=== PATIENT | female | born 1955 | race African-American/Black ===

== ENCOUNTER 2022-10-30 08:52 | Outpatient (CLI) | payer MEDICARE, SELFPAY | END 2022-10-30 08:53 | disposition home or self-care (01) | LOC: ANHAUDIO 08:53 | PROVIDERS: Visit Provider Otolaryngology | DX: H93.13 Tinnitus, bilateral (principal) | CPT/HCPCS: 92557; 92567 ==

== ENCOUNTER 2022-11-04 09:52 | Outpatient (CLI) | payer MEDICARE, SELFPAY ==
--- NOTE | ~2022-11-04 | MM_ITS ---
EXAMINATION: MM screening topher BI w rashmi HISTORY: Screening mammogram TECHNIQUE: Craniocaudal and mediolateral oblique 3-D tomosynthesis images were obtained and synthetic 2-D images were generated. CAD analysis was submitted and interpreted. COMPARISON: No prior mammogram is available for comparison at this institution. BREAST PARENCHYMAL COMPOSITION: There are scattered areas of fibroglandular density. FINDINGS: RIGHT BREAST: An asymmetry is present in the subareolar aspect of the breast. LEFT BREAST: There is focal asymmetry in the anterior third of the upper outer quadrant of the breast . IMPRESSION: 1. Bilateral breast findings as above which may represent the patient's baseline however no compariso n is currently available. 2. Comparison with prior mammograms is necessary. BI-RADS Category 0: Incomplete: Needs comparison with prior mammograms. Reviewed, dictated and finalized at location A. OPERATOR IMPRESSION: 1. Bilateral breast findings as above which may represent the patient's baselin e however no comparison is currently available. 2. Comparison with prior mammograms is necessary. BI-RADS Category 0: Incomplete: Needs comparison with prior mammograms.
== END 2022-11-04 09:53 | disposition home or self-care (01) ==
LOC: ANHIMG 09:58
DX: Z12.31 Encounter for screening mammogram for malignant neoplasm of breast (principal)
CPT/HCPCS: 77063; 77067

== ENCOUNTER 2023-12-29 12:09 | Emergency (ER) | payer MEDICARE, SELFPAY ==
[2023-12-29] VITALS (11 sets, daily range): BP systolic 64–124; BP diastolic 32–98; PULSE 59–87; RESP 17–20; TEMP 36.7; O2SAT 94–100
--- NOTE | ~2023-12-29 | CT_ITS ---
EXAMINATION: CT cervical spine wo con DATE: 12/29/2023 12:41 INDICATION: Head injury. TECHNIQUE: Computed tomography (CT) of the cervical spine was performed without intravenous contrast. Automated exposure control and iterative reconstruction technique were employed. The dose-length pro duct was 308.68 mGy-cm. COMPARISON: None FINDINGS: There is a 13 mm nodule in the thyroid, likely clinically significant. There is 6 degrees d extrocurvature of cervical spine. Vertebral body heights are normal. There is severely decreased disc height from C3-C4 through C5-C6 and moderately decreased disc height at C6-C7. The following disc le vels are specifically discussed: C2-C3: There is no uncovertebral joint osteoarthritis. There is mild bilateral facet joint osteoarthr itis. There is no neural foraminal stenosis. There is no central canal stenosis. C3-C4: There is severe bilateral uncovertebral joint osteoarthritis. There is mild right and moderate left facet joint osteoarthritis. There is mild bilateral neural foraminal stenosis. There is mild ce ntral canal stenosis. C4-C5: There is severe bilateral uncovertebral joint osteoarthritis. There is severe bilateral facet joint osteoarthritis. There is mild bilateral neural foraminal stenosis. There is mild central canal stenosis. C5-C6: There is severe bilateral uncovertebral joint osteoarthritis. There is mild right and moderate left facet joint osteoarthritis. There is mild right and moderate left neural foraminal stenosis. Th ere is mild central canal stenosis. C6-C7: There is mild right and severe left uncovertebral joint osteoarthritis. There is mild right an d severe left facet joint osteoarthritis. There is moderate left neural foraminal stenosis. There is mild central canal stenosis. C7-T1: There is no uncovertebral joint osteoarthritis. There is severe bilateral facet joint osteoart hritis. There is mild bilateral neural foraminal stenosis. There is no central canal stenosis. IMPRESSION: 1. No fracture. 2. Severe cervical spondylosis. Reviewed, dictated and finalized at location A.
--- NOTE | ~2023-12-29 | CT_ITS ---
EXAMINATION: CT brain wo con DATE: 12/29/2023 12:41 INDICATION: Head injury. Fall. TECHNIQUE: Computed tomography (CT) of the head was performed without intravenous contrast. The mA wa s adjusted according to patient size. Iterative reconstruction technique was employed. The dose-lengt h product was 681.00 mGy-cm. COMPARISON: None FINDINGS: There are scattered areas of low attenuation in the cerebral white matter, which is within normal limits for the patient's age. There is no intracranial hemorrhage, acute infarction, or abnorm al intracranial mass lesion. The ventricles are normal in size. There are likely changes of ocular le ns replacement surgeries. There is mild mucosal thickening sphenoid sinus. The mastoid air cells are normal. There is a right-sided scalp laceration. IMPRESSION: 1. Normal aging brain. Reviewed, dictated and finalized at location A. IMPRESSION: 1. Normal aging brain.
--- NOTE | 2023-12-29 12:28 | ED.HEATRA ---
HPI - Head Injury General Chief complaint: Head Injury Stated complaint: glf, lac Time Seen by Provider: 12/29/23 12:17 Source: patient and family (, daughter (via phone)) Mode of arrival: EMS Limitations: no limitations History of Present Illness HPI Narrative: Patient has a history of multiple sclerosis. Presents as a ground level fall after her leg gave out. No loss of consciousness. Denies any neck pain or back pain but sustained a large laceration to the left side of her scalp which has a large skin flap. Not on anticoagulation. 8 out of 10 pain. Tetanus up to date (last in 2019). Having pain at the site of the laceration. Related Data Home Medications Medication Instructions Recorded Confirmed carbamazepine 100 mg 100 mg PO Q12H 10/28/22 10/28/22 tablet,extended release,12 hr (Tegretol XR) ezetimibe 10 mg tablet (Zetia) 10 mg PO DAILY 10/28/22 10/28/22 fexofenadine 180 mg tablet 180 mg PO DAILY 10/28/22 10/28/22 (Thu Allergy) fingolimod 0.5 mg capsule (Gilenya) 0.5 mg PO DAILY 10/28/22 10/28/22 fluoxetine 40 mg capsule (Prozac) 40 mg PO DAILY 10/28/22 10/28/22 fluticasone propionate 50 1 spray intranasal DAILY 10/28/22 10/28/22 mcg/actuation nasal spray,suspension (Flonase Allergy Relief) gabapentin 600 mg tablet 600 mg PO TID 10/28/22 10/28/22 lisinopril 20 1 tablet PO BID 10/28/22 10/28/22 mg-hydrochlorothiazide 25 mg tablet modafinil 100 mg tablet (Provigil) 100 mg PO QAM 10/28/22 10/28/22 oxycodone-acetaminophen 5 mg-325 1 tablet PO Q6H PRN 10/28/22 10/28/22 mg tablet (Percocet) pantoprazole 40 mg tablet,delayed 40 mg PO QAM 10/28/22 10/28/22 release (Protonix) Allergies Allergy/AdvReac Type Severity Reaction Status Date / Time loratadine [From Claritin] Allergy Intermediate rash Verified 12/29/23 12:45 vicodin Allergy Severe Nausea and Uncoded 12/29/23 12:45 Vomiting PMFSH Past Medical History Medical History Multiple sclerosis Family History Family History (Updated 10/28/22 @ 11:44 by Maria Luz Pak CMA) Father Hypertension Mother Diabetes mellitus Hypertension Sibling Diabetes mellitus Other Hypertension Heart disease Social History Social History (Updated 12/30/23 @ 06:17 by Lyssa Rodriguez MD) Smoking status: Never smoker Alcohol intake: current Lack of Transportation: No Lack of Food: Never True Current Housing: I Have Housing Concerned About Future Housing: No Difficulty Paying Gas/Electric Bills: No Difficulty Paying for Meds: No Currently Unemployed: No Education: Associate Degree Difficulty w/ Childcare or Family Care: No Living arrangements: with family Additional living arrangements comments: . Has a daughter who works in an otolaryngology clinic Occupation/Education: retired Additional occupation/education comments: former nurse Exam Narrative: GENERAL: Well-appearing, well-nourished, and in no acute distress. Exceedingly pleasant HEAD: No palpable skull defect. Large laceration with skin flap along right side of head, inverted V shape. Short edge 4cm, long edge 12cm. Oozing blood occasionally but generally well controlled with pressure dressing applied. EYES: Non injected, non icteric ENT: Nares clear, no rhinorrhea or epistaxis. NECK: Supple. CHEST: Speaking in full sentences. No respiratory distress. HEART: Regular rate and rhythm. . ABDOMEN: Soft, nondistended. EXTREMITIES: Normal range of motion. No edema. SKIN: Warm, dry, no rash. NEURO: Contracture in RUE and RLE. Alert and oriented x3. PSYCH: Normal mood and affect. Course Vital Signs Vital signs: Vital Signs Temperature 98.0 F 12/29/23 12:08 Pulse Rate 87 12/29/23 12:08 Respiratory Rate 18 12/29/23 12:08 Blood Pressure 117/64 12/29/23 12:08 Pulse Oximetry 100 12/29/23 12:08 Oxygen Delivery Room Air 12/29/23 12:08 Temper
[2023-12-29] MEDS: ACETAMINOPHEN 500 MG TABLET 1000 MG PO (13:28)
[2023-12-29] MEDS: MORPHINE SULFATE (*CRX) 4 MG/ML INJ IV PUSH (13:32)
[2023-12-29] MEDS: SODIUM CHLORIDE 0.9% IV 1,000 ML 999 ML IV CONT (14:45)
== END 2023-12-29 16:12 | disposition home or self-care (01) ==
PROVIDERS: Emergency Provider Student in an Organized Health Care Education/Training Program
DX: S01.01XA Laceration without foreign body of scalp, initial encounter (principal); G35 Multiple sclerosis; M47.812 Spondylosis without myelopathy or radiculopathy, cervical region; W18.39XA Other fall on same level, initial encounter
CPT/HCPCS: 12005; 70450; 72125; 96361; 96374; 99284; A9270; J2270; J7030